=== PATIENT | female | born 1980 | race Caucasian/White ===

== ENCOUNTER 2022-03-04 10:02 | Outpatient (CLI) | payer BC, OTHER | END 2022-03-04 10:03 | disposition home or self-care (01) | LOC: CSHULT 10:02 | PROVIDERS: ATTEND Internal Medicine Gastroenterology | DX: K74.60 Unspecified cirrhosis of liver (principal); Z90.49 Acquired absence of other specified parts of digestive tract; R18.8 Other ascites | CPT/HCPCS: 76700 ==